=== PATIENT | male | born 1945 | race Asian ===

== ENCOUNTER → 2019-01-02 | Day surgery (SDC) | payer MEDICARE, OTHER ==
[2018-12-28 13:36] LABS: Urine WBC None Seen /hpf (0 - 3)
[2018-12-28 13:38] LABS: Basophils # (auto) 0 uL; Basophils % (auto) 0.5 % (0.0-2.0); Eosinophils # (auto) 0.2 uL; Eosinophils % (auto) 2.5 % (0.0-7.0); Hematocrit 42.4 % (41.0-53.0); Hemoglobin 14.4 g/dL (13.5-17.5); Lymphocytes # (auto) 1.4 uL; Lymphocytes % (auto) 17.9 % (10.0-50.0); Mean Corpuscular Hgb Conc. 33.8 g/dL (32.0-36.0); Mean Corpuscular Volume 94.6 fL (80.0-100.0); Monocytes # (auto) 0.9 uL; Monocytes % (auto) 10.8 % (0.0-12.0); Neutrophils # (auto) 5.5 uL; Neutrophils % (auto) 68.3 % (37.0-80.0); Platelet Count (auto) 266 10^3/uL (140-450); Red Blood Cells 4.49 10^6/uL (4.5-5.90); Red Cell Distribution Width 13.5 % (11.8-14.3)
[2018-12-28 13:54] LABS: INR 0.93 (0.9-1.15); Partial Thromboplastin Time 27.5 sec (23.78-33.04)
[2018-12-28 14:12] LABS: Calcium 8.8 mg/dL (8.5-10.1); Potassium 4.1 mmol/L (3.5-5.1)
[2018-12-28 14:15] LABS: BUN/Creatinine Ratio 12.1; Bilirubin, Total 0.6 mg/dL (0.2-1.0); Total Protein 7.8 g/dL (6.4-8.2)
[2018-12-28 15:14] LABS: Urine Bacteria NONE SEEN /hpf (None Seen); Urine Blood Negative /uL (Negative); Urine Specific Gravity 1.023 (1.001-1.035)
[~2019-01-02] VITALS: Ht 185.4 cm; Wt 94.8 kg
[~2019-01-02] MED LIST: BUPIVACAINE 0.75% INJ 10ML MPV SDV IJ ONE; CALC1TAB47 PO; CARV6.2551 PO; DRON400T PO; GLUCTAB8 OR; MIDAZOLAM HCL 1MG/1ML-2 ML VIAL ONE; MULTTAB61 PO; OMEG1360 PO; ONDANSETRON HCL 4 MG/2 ML VIAL IV ONE; RIV15T PO; SIMV-8 PO; SITA50TA28 PO; ceFAZolin 1GM/50ML 50 ML IV ONE; ePHEDrine SULFATE 50 MG/ML AMP IV PRN; fentaNYL CITRATE 100 MCG/2 ML VL IV ONE; fentaNYL CITRATE 100 MCG/2 ML VL ONE; hydrALAZINE HCL 20 MG/ML VL IV PRN
[2019-01-02 09:16] VITALS: BP 117/76
== END | disposition home or self-care (01) ==
LOC: SUR 06:24
PROVIDERS: ATTEND Podiatrist Foot & Ankle Surgery
DX: M20.21 Hallux rigidus, right foot (principal); M20.5X2 Other deformities of toe(s) (acquired), left foot; E11.9 Type 2 diabetes mellitus without complications; I48.91 Unspecified atrial fibrillation; H26.8 Other specified cataract; Z95.0 Presence of cardiac pacemaker; Z87.891 Personal history of nicotine dependence; Z98.890 Other specified postprocedural states
CPT/HCPCS: 28289; 36415; 80053; 81001; 82962; 85025; 85610; 85730; 88304; 88311; J0690; J2250; J3010; J3490

== ENCOUNTER → 2022-11-21 | Day surgery (SDC) | payer MEDICARE, OTHER ==
[~2022-11-21] VITALS: Ht 185.4 cm; Wt 96.2 kg
[~2022-11-21] MED LIST changes: +BUPIVACAINE 0.5% P/F INJ 10 ML VIAL ONE; -BUPIVACAINE 0.75% INJ 10ML MPV SDV IJ ONE; +DexAMETHasone SOD PHOS 10MG/1ML VIAL INJ ONE; +EPINEPHrine HCL 1 MG/1 ML AMP ONE; +GLYCOPYRROLATE 0.2 MG/ML 1ML VIAL ONE; +KETAMINE HCL 10 ML ONE; +KETOROLAC TROMETH 30 MG/ML 1ML VIAL ONE; +LIDOCAINE 2% (LOCAL ANESTH.) PF 5ml SDV ONE; +LIDOCAINE 2% JELLY 11ml (GLYDO) ONE; -MIDAZOLAM HCL 1MG/1ML-2 ML VIAL ONE; +MULT-1018 PO; -MULTTAB61 PO; -ONDANSETRON HCL 4 MG/2 ML VIAL IV ONE; +ONDANSETRON HCL 4 MG/2 ML VIAL ONE; +PROPOFOL 10 MG/ML 20 ML IV ONE; -RIV15T PO; +ceFAZolin 1GM/50ML 100 ML IV ONE; -ceFAZolin 1GM/50ML 50 ML IV ONE; -ePHEDrine SULFATE 50 MG/ML AMP IV PRN; +ePHEDrine SULFATE 50 MG/ML AMP ONE; -fentaNYL CITRATE 100 MCG/2 ML VL IV ONE; -hydrALAZINE HCL 20 MG/ML VL IV PRN
[2022-11-21 10:50] VITALS: BP 126/71
== END | disposition home or self-care (01) ==
LOC: SUR 07:56
PROVIDERS: ATTEND Orthopaedic Surgery
DX: S83.232A Complex tear of medial meniscus, current injury, left knee, initial encounter (principal); S83.282A Other tear of lateral meniscus, current injury, left knee, initial encounter; X58.XXXA Exposure to other specified factors, initial encounter; Y93.89 Activity, other specified; Y92.89 Other specified places as the place of occurrence of the external cause; M22.42 Chondromalacia patellae, left knee; I48.91 Unspecified atrial fibrillation; I10 Essential (primary) hypertension; G43.909 Migraine, unspecified, not intractable, without status migrainosus; Z79.899 Other long term (current) drug therapy
CPT/HCPCS: 29880; J0171; J0690; J1100; J1885; J2001; J2405; J2704; J3490; U0003

== ENCOUNTER 2025-09-22 07:28 | Inpatient (IN) | payer MEDICARE, OTHER ==
[~2025-09-22] VITALS: Ht 186.7 cm; Wt 105.5 kg
[2025-09-22] VITALS (15 sets, daily range): BP systolic 99–139; BP diastolic 35–127; PULSE 64–77; RESP 12–18; TEMP 97–98.6; O2SAT 94–100
[~2025-09-22 07:28] MED LIST changes: +ASPI1TAB20 PO; +ATOR10TA52 PO; -BUPIVACAINE 0.5% P/F INJ 10 ML VIAL ONE; -CALC1TAB47 PO; -DRON400T PO; -DexAMETHasone SOD PHOS 10MG/1ML VIAL INJ ONE; +EMPA1TAB PO; -EPINEPHrine HCL 1 MG/1 ML AMP ONE; -GLUCTAB8 OR; -GLYCOPYRROLATE 0.2 MG/ML 1ML VIAL ONE; -KETAMINE HCL 10 ML ONE; -KETOROLAC TROMETH 30 MG/ML 1ML VIAL ONE; -LIDOCAINE 2% (LOCAL ANESTH.) PF 5ml SDV ONE; -LIDOCAINE 2% JELLY 11ml (GLYDO) ONE; -MULT-1018 PO; -OMEG1360 PO; -ONDANSETRON HCL 4 MG/2 ML VIAL ONE; +PANT1INJ3 IV; +PANT40TA2 PO; -PROPOFOL 10 MG/ML 20 ML IV ONE; -SIMV-8 PO; -SITA50TA28 PO; -ceFAZolin 1GM/50ML 100 ML IV ONE; -ePHEDrine SULFATE 50 MG/ML AMP ONE; -fentaNYL CITRATE 100 MCG/2 ML VL ONE
[2025-09-22] MEDS ORDERED: fentaNYL CITRATE 100 MCG/2 ML VL ONE ×2 (10:46→11:36)
[2025-09-22] MEDS ORDERED: KETAMINE 50mg/ML 1ml syringe ONE ×2 (10:46→11:57)
[2025-09-22] MEDS ORDERED: MIDAZOLAM HCL 2MG/2ML 2ml VIAL (1mg/ml) ONE ×2 (10:47→11:36)
[2025-09-22] MEDS ORDERED: MORPHINE SULF PF 5 MG/10 ML VIAL ONE ×2 (10:47→11:37)
[2025-09-22] MEDS ORDERED: ONDANSETRON HCL 4 MG/2 ML VIAL ONE (10:49)
[2025-09-22] MEDS ORDERED: PROPOFOL 10 MG/ML 20 ML IV ONE (10:49)
[2025-09-22] MEDS ORDERED: GLYCOPYRROLATE 0.2 MG/ML 1ML VIAL ONE (10:49)
[2025-09-22] MEDS ORDERED: KETAMINE 50mg/ML 10ml Vial 10 ML ONE (11:27)
[2025-09-22] MEDS ORDERED: diphenhydrAMINE HCL 50 MG/1 ML VL ONE (11:37)
[2025-09-22] MEDS: BUPIVACAINE HCL 0.25% P/F 10 ML VIAL ONE (12:39)
[2025-09-22] MEDS: MORPHINE SULF PF 5 MG/10 ML VIAL ONE (12:39)
[2025-09-22] MEDS: KETOROLAC TROMETH 30 MG/ML 1ML VIAL ONE (12:39)
[2025-09-22] MEDS: VANCOMYCIN HCL 1000 MG VL ONE (12:42)
--- NOTE | 2025-09-22 13:08 | DVHOP2 ---
Discharge Orders Discharge Orders DISCHARGE WHEN CRITERIA MET DISCHARGE WHEN CRITERIA MET. Operative Rep- Outpatient Operative Report PRE-OP DIAGNOSIS: Left knee DJD PRE-OP PAIN LEVEL (0-10): 8 POST-OP DIAGNOSIS: same POST-OP PAIN LEVEL (0-10): unclear [place] protocol followed: Yes ESTIMATED BLOOD LOSS: 25 cc PROCEDURE: Left total knee arthroplasty Computer navigation left total knee arthroplasty Application of negative pressure wound VAC SURGEON/PATCH PRESS OPERATOR: Apollo CONTEH ANESTHESIA: General ANESTHESIOLOGIST: INFORMED CONSENT: Informed Consent: Discussed all inherent risks, complications, and alternatives treatments with the patient. Patient has agreed to proceed with the procedure. I have reviewed all pre-operative assessments including Labs, EKGs, and radiographic images that has been performed. Patient is an appropriate candidate for the outpatient surgical center procedure. The patient is a 80-year-old male who has ongoing pain in the left knee was consented for a unicompartmental total knee arthroplasty versus a total knee arthroplasty and we did educate the patient preoperatively the patient is a candidate for unicompartment knee arthroplasty however there was any concern about the lateral compartment then we will transition over to a total knee arthroplasty of the patient understood all the risks and benefits of surgical and nonsurgical treatment of the left lower extremity the patient understood the risks and benefits of surgical and nonsurgical treatment The patient opted for surgical treatment of the left lower extremity The patient was seen in the preoperative holding of the left lower extremity was marked the patient was brought to operative suite general anesthesia was then induced and also to hospital protocol the left lower extremity was prepped and draped in the standard fashion Ancef was given for infection prophylaxis TXA was given for bleeding prophylaxis once I was then done the left lower extremity was then prepped and draped in the standard fashion once it was then completed in the appropriate manner an incision was made through skin subcu tissue down to the VMO quad junction of the medial parapatellar arthrotomy was then created in the appropriate manner once I was then completed in the appropriate manner a medial release was then created once I was then created of the fat was then removed with a of the anterior compartment of the patellar tendon once I was then done the medial and lateral meniscectomy was then done on the anterior horn of the medial and lateral meniscus once it was then that the ACL was transected once I was then completed the of the computer navigation with a 2 degree slope based on the poly and based on the fact that I was cutting portions of the PCL and I did 2 degree slope to help with the flexion gap once it was then completed computer navigation was brought onto the field the proximal tibia cut was then completed with a 2 mm off the high medial side once I was then completed in the appropriate manner with 2 mm off the medial side of the proximal tibia cut was then completed in the appropriate manner once it was then completed in the appropriate manner with the proximal tibia cut being completed once it was then done in the distal femoral cut with the computer navigation with a 3 degree flexion kit hematocrit mechanical axis with a 3 of flexion and internal cut of the distal femoral cut was then completed with a size 7 femoral component was then noted to be appropriately sized the 4 in 1 cutting block was then used on the posterior osteophytes were carefully removed once I was then done the 9 mm spacer block was then balanced in flexion and extension however was tight medially therefore reduction tibial osteotomy was then completed along with a medial release along the posterior aspect of the proximal tibia to balance out of the knee once I was then done a size 6 tibial base plate was then punched and kicked along the medial 1/3 of the tibial tubercle 9 mm MC poly was then placed with a size 7 femoral component once I was then done all the trial components were carefully done patellar neurectomy was then completed once I was then completed a size 6 tibial base plate was then punched and killed followed then placed along with a size 9 MC poly followed by a size 7 for the femoral component was then placed into position once I was then done of the knee was irrigated copiously with saline and then Betadine followed by Ethibond followed by 0 Vicryl followed by 2-0 Monocryl followed by claude. The patient will be weight-bearing as tolerated in the left lower extremity PT OT out of bed daily follow up in 2 weeks' time. APOLLO ROBBINS MD Sep 22, 2025 13:08
[2025-09-22] MEDS ORDERED: NALOXONE HCL 0.4 MG/ML VIAL IV PRN (13:15)
[2025-09-22] MEDS ORDERED: ONDANSETRON HCL 4 MG/2 ML VIAL IV PRN (13:15)
[2025-09-22] MEDS ORDERED: HYDROmorphone HCL 2 MG/ML VL/or syr IV PRN (13:15)
[2025-09-22] MEDS ORDERED: MIDAZOLAM HCL 2MG/2ML 2ml VIAL (1mg/ml) IV PRN (13:15)
[2025-09-22] MEDS ORDERED: LIDOCAINE W/ EPINEPHRINE 2% INJ 20ML VIAL ONE (14:09)
[2025-09-22] MEDS: PREGABALIN CAPSULE 75 MG CAP PO ONE (14:15)
[2025-09-22] MEDS ORDERED: MORPHINE SULFATE INJ 2 MG/ml SYRG IV PRN (14:15)
[2025-09-22] MEDS ORDERED: NITROGLYCERIN 0.4 MG SL TAB SL PRN (14:15)
[2025-09-22] MEDS: CELECOXIB 100 MG CAP PO ONE (14:15)
[2025-09-22] MEDS: ACETAMINOPHEN IV 1000 MG/100ML (10MG/ML) IV ONE (14:17)
[2025-09-22] MEDS: TRANEXAMIC ACID 20 ML ONE (16:20)
[2025-09-22] MEDS: BUPIVACAINE 0.5% P/F INJ 10 ML VIAL ONE (16:21)
[2025-09-22] MEDS: CEFEPIME 1GM/50ML 50 ML IV ONE (16:21)
--- NOTE | 2025-09-22 18:43 | DVHINCON2 ---
Date Seen: Sep 22, [address] ROBBINS Family History: FH: cancer G8 FATHER Allergies: Coded Allergies: NO KNOWN ALLERGIES (Unverified , 12/28/18) Home Meds Reported Medications Aspirin (Aspir-81) 81 Mg Tab, 81 MG PO, TAB 09/19/25 Empagliflozin (Jardiance) 10 Mg Tab, PO, TAB 09/19/25 Pantoprazole Sodium Sesquihydr (Protonix) 40 Mg Tab, PO DAILY, #30 TAB 09/19/25 Pantoprazole Sodium (PANTOPRAZOLE SODIUM) 40 Mg Inj, 40 MG IV, INJ 09/19/25 Atorvastatin Calcium (ATORVASTATIN CALCIUM) 10 Mg Tab, PO DAILY, TAB 09/19/25 Carvedilol (Carvedilol) 6.25 Mg Tab, 6.25 MG PO Q12HR for 30 Days, MG 12/28/18 Current Medications Current Medications Medications (Trade) Dose Ordered Sig/Asya Route PRN Reason Start Time Stop Time Status Last Admin Ondansetron HCl (Zofran) 4 mg Q4HP PRN IV NAUSEA / VOMITING 09/22/25 13:15 09/22/25 18:00 DC Naloxone HCl (Narcan) 0.2 mg Q5M PRN IV For respirations < than 10/min 09/22/25 13:15 09/22/25 13:52 DC Hydromorphone HCl (Dilaudid Injection) 0.5 mg Q15M PRN IV SEVERE PAIN (7-10 PAIN SCALE) 09/22/25 13:15 09/22/25 13:52 DC Dexamethasone Sodium Phosphate (Decadron Injection) 10 mg RETREAD TECHNICIAN PRN IV FOR ITCHING 09/22/25 13:15 09/22/25 13:52 DC Midazolam HCl (Versed Injection) 1 mg Q10M PRN IV ANXIETY 09/22/25 13:15 09/22/25 13:56 DC Ephedrine Sulfate (ePHEDrine SULFATE) 10 mg Q10M PRN IV SBP LESS THAN 90 09/22/25 13:15 09/22/25 13:56 DC Sodium Chloride (Saline Lock Ns) 10 ml Q8HR IV 09/22/25 22:00 Acetaminophen/ Hydrocodone Bitart ([place] 5/325MG Tab) 1 tab Q4HP PRN PO MODERATE PAIN (4-6 PAIN SCALE) 09/22/25 14:15 Morphine Sulfate 2 mg Q4HP PRN IV BREAKTHROUGH PAIN 09/22/25 14:15 Enoxaparin Sodium (Lovenox) 40 mg DAILY SC 09/23/25 10:00 Nitroglycerin (Ntrostat Sublingual) 0.4 mg Q5MINP PRN SL FOR CHEST PAIN 09/22/25 14:15 Morphine Sulfate 2 mg Q30M PRN IV FOR CHEST PAIN 09/22/25 14:15 Vital Signs Vital Signs Date Time Temp Pulse Resp B/P (MAP) Pulse Ox O2 Delivery O2 Flow Rate FiO2 09/22/25 17:45 66 16 96 09/22/25 17:00 98.5 139/83 (101) 98.5 09/22/25 15:49 Room Air* 0 21 Labs/Diagnostic Data Labs Test 09/22/25 16:46 09/22/25 11:33 Range/Units Creatinine 1.01 0.700-1.30 mg/dL Glomerular Filtration Rate Calc 76 >90 mL/min POC Glucose 87 70-106 mg/dl Assessment SEE DICTATED NOTE Plan discussed with: Patient Date of Service: Sep 22, 2025 Billing Provider: PEPE CADET MD Common Visit Codes: [id number] INP/OBS CARE (HIGH) Secondary Visit Codes: [id number] CARE PLAN 30 MINUTES PEPE CADET MD Sep 22, 2025 18:43
--- NOTE | 2025-09-22 18:57 | DVHINCON2 ---
INTERNAL MEDICINE CONSULT HISTORY OF PRESENT ILLNESS: The patient is a 80-year-old gentleman who has been seen after he underwent surgery on the left knee for DJD of the knee. The patient denies any significant pain. No chest pain. No shortness of breath. No nausea or vomiting. REVIEW OF SYSTEMS: Review of rest of the systems otherwise currently negative. PAST MEDICAL HISTORY: Significant for atrial fibrillation, status post ablation, status post WATCHMAN procedure. Also has history of hyperlipidemia and GERD. MEDICATIONS: He takes Lipitor, aspirin, Protonix, Coreg, and Jardiance. ALLERGIES: No known drug allergies. SOCIAL HISTORY: Occasional alcohol. Denies smoking. Lives alone. FAMILY HISTORY: Negative. PHYSICAL EXAMINATION: GENERAL: The patient is awake, alert. VITAL SIGNS: Temperature of 98.5, pulse 65 per minute, blood pressure 139/83. SHEENT: Unremarkable. NECK: There is no JVD. No pedal edema. LUNGS: Equal bilaterally. No added sounds. CARDIOVASCULAR SYSTEM: S1 and S2 is regular. No murmurs. ABDOMEN: Soft. There is no organomegaly. NEUROLOGIC: Nonfocal. MUSCULOSKELETAL: The left knee is currently in the dressing. ASSESSMENT AND PLAN: * Atrial fibrillation, status post ablation, status post WATCHMAN procedure. * Hyperlipidemia. * Gastroesophageal reflux disease. * Status post left knee surgery for degenerative joint disease of the knee for which he will be placed on pain medication and receive physical therapy. * Advanced care planning. The patient is a full code-Time spent was 18 minutes. MD SAMANTHA Raman/TERESA TID: [id number] RECEIPT: [id number] [facility]
[2025-09-22] MEDS: CARVEDILOL 3.125 MG TAB PO SCH (21:34)
[2025-09-22] MEDS: SODIUM CHLOR 0.9% PF (SALINE LOCK) 10ML VIAL/SYR IV SCH (21:35)
[2025-09-23] VITALS (23 sets, daily range): BP systolic 98–124; BP diastolic 58–75; PULSE 62–76; RESP 16–18; TEMP 97.1–98.9; O2SAT 94–99
[2025-09-23 01:38] LABS: Urine Protein, UAD Negative (Negative)
[2025-09-23] MEDS: PANTOPRAZOLE 40 MG TAB PO SCH (05:11)
[2025-09-23 06:16] LABS: Hematocrit 41.2 % (41.0-53.0); Hemoglobin 14.1 g/dL (13.5-17.5); Mean Corpuscular Hemoglobin 31.0 pg (28.0-32.0); Mean Corpuscular Volume 90.6 fL (80.0-100.0); Nucleated Red Blood Cells % 0.0 %
[2025-09-23 06:45] LABS: Albumin 4.1 g/dL (3.2-4.8); Alkaline Phosphatase 70 U/L (46-116); Anion Gap 10 (5-15); BUN/Creatinine Ratio 14.1 (10.0-20.0); Bilirubin, Total 0.8 mg/dL (0.2-1.0); Blood Urea Nitrogen 14 mg/dL (9-23); Calcium 9.3 mg/dL (8.7-10.4); Carbon Dioxide 24 mmol/L (20-31); Chloride 103 mmol/L (98-107); Potassium 4.9 mmol/L (3.5-5.1); Sodium 137 mmol/L (136-145); Total Protein 6.5 g/dL (5.7-8.2)
[2025-09-23 06:51] LABS: Alanine Aminotransferase 58 U/L (7-40); Glucose 193 mg/dL (74-106)
--- NOTE | 2025-09-23 07:52 | DVHPN2 ---
Progress Note Date Seen: Sep 23, 2025 Medical Necessity Reason Pt with a Central, PICC or Fol: Yes The following are medically ne: Villasenor Catheter Subjective Patient reports: No new complaints Objective vital signs Vital Sign Date Time Temp Pulse Resp B/P (MAP) Pulse Ox O2 Delivery O2 Flow Rate FiO2 09/23/25 06:57 65 16 97 09/23/25 05:00 97.1 124/65 (84) 97.1 09/22/25 20:00 Room Air* 0 21 Total Intake and Output 09/22/25 09/22/25 09/23/25 15:00 23:00 07:00 Intake Total 100 ml 0 ml 1300 ml Output Total 1400 ml Balance 100 ml 0 ml -100 ml medications Current Medications Medications Dose Ordered Sig/Asya Route Start Time Stop Time Status Last Admin Dose Admin Sodium Chloride 10 ml Q8HR IV 09/22/25 22:00 09/23/25 05:11 10 ML Acetaminophen/ Hydrocodone Bitart 1 tab Q4HP PRN PO 09/22/25 14:15 Morphine Sulfate 2 mg Q4HP PRN IV 09/22/25 14:15 Enoxaparin Sodium 40 mg DAILY SC 09/23/25 10:00 Nitroglycerin 0.4 mg Q5MINP PRN SL 09/22/25 14:15 Morphine Sulfate 2 mg Q30M PRN IV 09/22/25 14:15 Carvedilol 3.125 mg Q12HR PO 09/22/25 22:00 09/22/25 21:34 3.125 MG Pantoprazole Sodium 40 mg DAILY@0600 PO 09/23/25 06:00 09/23/25 05:11 40 MG Examination: GENERAL:Normal, MSK:Abnormal laboratory and microbiology Laboratory Tests 09/23/25 05:29 Test 09/23/25 05:29 Range/Units Serum Glucose 193 H 74-106 mg/dL Problem List/Assessment/Plan Problem List/Assessment/Plan 80 year old male who is s/p left total knee arthroplasty POD 1 1. pain control 2. WBAT 3. CPM as ordered 4. Home health arrangements made by Dr. Tello prior to surgery 5. prescriptions for percocet, aspirin, keflex and colace sent on 09/16/2025 to [facility] pharmacy 6. Patient to follow up as scheduled on 10/08/2025 at 10:15 7. d/c villasenor cath 8. patient to ambulate with PT prior to going home 9. clear for discharge from orthopedic standpoint so long as patient can urinate independently and ambulate with walker with the following discharge recommendations: Total Knee Arthroplasty Discharge Instructions Wound Care 1. You will likely have a gel-type dressing over your wound, you may keep this on for 7-14 days after leaving the hospital until your first post-op visit, unless it becomes soiled or your skin becomes irritated. If a wound vac dressing is placed on your knee this is to be left in place for one week and will be changed as needed. After your remove the dressing or wound vac, the home health nurse may place clean dry dressing over your wound. Keep wound covered, clean and dry for two weeks. 2. Greg will be removed during your initial post-op visit. If you have concerns about our wound, please call the office immediately. If nervous about staple removal can take pain pill one hour prior to appointment. 3. If there is drainage from your wound, change the dressing daily until it stops. If drainage lasts more than 10 days, call our office. 4. Low grade (up to 100 degrees) fever is common for the first week after surgery. You should take your temperature daily. If you have fevers of 101 or more, please call the office. Medication Management 1. You will be discharged with pain medication, a blood thinner (unless you were previously on a blood thinner prior to surgery) and stool softener. Please follow the instructions regarding these medications as provided by your nurse at the hospital upon discharge. 2. Blood clots in the leg are a known complication of surgery. It is very important that you take the medication to protect against clots. Depending on what you are discharged on typically it is Lovenox 40mg daily for 2 weeks or Aspirin 81mg twice daily for 4 weeks. After you finish this, you should then take baby Aspirin (81mg) once daily for 2 weeks. 3. You should restart all of your prescription medications once discharged from the hospital/surgery center unless specifically instructed otherwise. 4. Herbal supplements may be restarted 2 weeks after surgery. 5. If you have been given Coumadin as a blood thinner, please follow up with your spot sprayer during the first two weeks after surgery to review medications and overall medical well-being. 6. Please note that narcotic pain medication may cause constipation. Please remember to take stool softeners (Colace) when using narcotics to help reduce the change of constipation. You should not use alcohol together with narcotic medication. Activity 1. CPM as ordered, goal is for 6 hours every day for the first 21 days of your recovery. Can break it up in to increments of 2-3 hours at a time. Most hospitals will start at 45 degrees of flexion, and increase by 5 degrees daily until the machine has been maxed out. The goal is to be at 90 degrees by first postop visit in 2 weeks. 2. No pool, jacuzzi, beach, og or bath for 6 weeks. Once all scabbing has fallen off patient can begin soaking and submerging knee under water for 15- minute periods at a time. 3. Physical therapy is critical in the first 2 weeks. If having issues with scheduling please inform office. 4. No running or jumping for 6 weeks. 5. Can walk and bear as much weight on the surgical leg as tolerated. No restrictions in regards to walking or standing. [facility] [place] 1. Driving is not permitted within the first 2 weeks. 2. Your first postoperative visit will take place 2 weeks after discharge. Please call the office once you are home from the hospital to arrange this appointment. 3. Antibiotic preventative treatment is required before dental or other invasive procedures. Please ask your surgeon about this at your first postoperative visit. If you experience chest pain, shortness of breath or severe painful calf swelling, go to the nearest emergency room to be evaluated. Please call our office once your situation is stabilized. Plan discussed with: Patient My Orders My Orders Orders - BISI MYRICK NP Procedure Category Date Status Time Patient Condition ORDERS 09/22/25 Transmitted 14:06 Regular Diet DIET 09/22/25 Transmitted Lunch Sodium Chloride Lock PHA 09/22/25 In Process (Saline Lock Ns) 22:00 Hydrocodone-Acet PHA 09/22/25 In Process 5/325mg Tab ([place] 14:15 Pt Request For Service PT 09/23/25 Logged 08:00 CPM PT 09/22/25 Transmitted 14:06 Hemoglobin & LAB 09/24/25 Verified Hematocrit 05:00 Hemoglobin & LAB 09/25/25 Verified Hematocrit 05:00 Call/Page GENNA 09/22/25 In Process Hospitalist/Atten Fo 14:06 Incentive Spirometry ORDERS 09/22/25 Transmitted 14:06 Morphine Sulfate PHA 09/22/25 In Process Injection 14:15 Enoxaparin Sodium PHA 09/23/25 In Process (Lovenox) 10:00 Nitroglycerin PHA 09/22/25 In Process Sublingual (Ntrostat 14:15 Morphine Sulfate PHA 09/22/25 In Process Injection 14:15 Stat Ekg For Chest GENNA 09/22/25 In Process Pain 14:06 Notify Of Changes [facility] 09/22/25 In Process From Base 14:06 Salad Maker For [facility] 09/22/25 In Process 24 Hours 14:06 Emergency Dysrhythmia [facility] 09/22/25 In Process Protocol 14:06 Rhythm Strips Once [facility] 09/22/25 In Process Every Shift 14:06 Oxygen By Nasal RT 09/22/25 Transmitted Cannula 14:06 * Hospitalist Consult CONS 09/22/25 Transmitted Date of Service: Sep 23, 2025 Billing Provider: NANCY TELLO MD Common Visit Codes: NOT BILLABLE BISI MYRICK NP Sep 23, 2025 07:52
[2025-09-23] MEDS: ENOXAPARIN SOD 40 MG/0.4 ML SYRINGE SC SCH (09:26)
[2025-09-23] MEDS: HYDROcodone-ACET 5/325MG TAB PO PRN (09:28)
--- NOTE | 2025-09-23 10:37 | DVHDS2 ---
Discharge Summary Date of Admission Sep 22, 2025 at 14:06 Date of Discharge: Sep 23, 2025 Labs/Diagnostic Data: Laboratory Results Test 09/23/25 05:29 09/23/25 01:11 09/22/25 11:33 White Blood Count 16.6 10^3/uL (4.4-10.8) Red Blood Count 4.55 10^6/uL (4.5-5.90) Hemoglobin 14.1 g/dL (13.5-17.5) Hematocrit 41.2 % (41.0-53.0) Mean Corpuscular Volume 90.6 fL (80.0-100.0) Mean Corpuscular Hemoglobin 31.0 pg (28.0-32.0) Mean Corpuscular Hemoglobin Concent 34.2 g/dL (32.0-36.0) Red Cell Distribution Width 14.0 % (11.8-14.3) Platelet Count 254 10^3/uL (140-450) Mean Platelet Volume 8.3 fL (6.9-10.8) Neutrophils (%) (Auto) 91.5 % (37.0-80.0) Lymphocytes (%) (Auto) 4.2 % (10.0-50.0) Monocytes (%) (Auto) 4.3 % (0.0-12.0) Eosinophils (%) (Auto) 0.0 % (0.0-7.0) Basophils (%) (Auto) 0.0 % (0.0-2.0) Neutrophils # (Auto) 15.2 10 ^3/uL (1.6-8.6) Lymphocytes # (Auto) 0.7 10 ^3/uL (0.4-5.4) Monocytes # (Auto) 0.7 10 ^3/uL (0-1.3) Eosinophils # (Auto) 0 10 ^3/uL (0-0.8) Basophils # (Auto) 0 10 ^3/uL (0-0.2) Nucleated Red Blood Cells 0.0 % Sodium Level 137 mmol/L (136-145) Potassium Level 4.9 mmol/L (3.5-5.1) Chloride Level 103 mmol/L (98-107) Carbon Dioxide Level 24 mmol/L (20-31) Anion Gap 10 (5-15) Blood Urea Nitrogen 14 mg/dL (9-23) Creatinine 0.99 mg/dL (0.700-1.30) Glomerular Filtration Rate Calc 77 mL/min (>90) BUN/Creatinine Ratio 14.1 (10.0-20.0) Serum Glucose 193 mg/dL (74-106) Calcium Level 9.3 mg/dL (8.7-10.4) Total Bilirubin 0.8 mg/dL (0.2-1.0) Aspartate Amino Transferase (AST) 35 U/L (13-40) Alanine Aminotransferase (ALT) 58 U/L (7-40) Alkaline Phosphatase 70 U/L (46-116) Total Protein 6.5 g/dL (5.7-8.2) Albumin 4.1 g/dL (3.2-4.8) Urine Color Light-yellow (Yellow) Urine Clarity Clear (Clear) Urine pH 5.0 (5.0-9.0) Urine Specific [place] 1.030 (1.001-1.035) Urine Protein Negative (Negative) Urine Ketones Trace (Negative) Urine Blood Negative /uL (Negative) Urine Nitrite Negative (Negative) Urine Bilirubin Negative (Negative) Urine Urobilinogen Normal mg/dL (Negative) Urine Leukocyte Esterase Negative /uL (Negative) Urine RBC 2 /hpf (0 - 3) Urine Microscopic WBC 1 /HPF (0-3) Urine Squamous Epithelial Cells None seen /hpf (<5) Urine Bacteria None seen /hpf (None Seen) Urine Hyaline Casts Few /lpf (0 - 2) Urine Glucose 4+ mg/dL (Normal) POC Glucose 87 mg/dl (70-106) Other Laboratory Tests 09/23/25 05:29 Brief Hx & Hospital Course: SEE DICTATED NOTE Condition at Discharge: Fair Final Diagnosis/Problems List KNEE SURGERY Discharge Disposition: Home Discharge Instruct/Medications Diet: Cardiac 2g Na,low cholest Activity: No Restrictions, As Tolerated Follow Up/Referral: FU WIHT PCP/ORTHO Medications: RESUME HOME MEDS REST MEDS PER ORTHO Scheduled Atorvastatin Calcium (Atorvastatin Calcium), Unknown Dose PO DAILY, (Reported) Carvedilol (Carvedilol), 6.25 MG PO Q12HR, (Reported) Pantoprazole Sodium Sesquihydr (Protonix), Unknown Dose PO DAILY, (Reported) Miscellaneous Medications Aspirin (Aspir-81), 81 MG PO, (Reported) Empagliflozin (Jardiance), Unknown Dose PO, (Reported) Pantoprazole Sodium (Pantoprazole Sodium), 40 MG IV, (Reported) Discharge Statement: "Patient was advised to return to the ER or call 911 if any headaches, dizziness, shortness of breath, chest pain, abdominal pain, bleeding, fevers, or worsening of medical condition. Patient was counseled about treatment plan, medications, possible side effects, patientverbalized understanding. All questions were answered to the best of my ability. This discharge took greater then 30 minutes in planning, reviewing documentation, counseling the patient, and discussing with other team members." ASSESSMENT ASSESSMENT Assessment KNEE SURGERY Date of Service: Sep 23, 2025 Billing Provider: PEPE CADET MD Common Visit Codes: [id number] DISCH DAY >30min PEPE CADET MD Sep 23, 2025 10:37
--- NOTE | 2025-09-23 10:52 | DVHDS ---
HISTORY OF PRESENT ILLNESS: The patient is a 80-year-old gentleman who was admitted after he underwent surgery on the left knee for DJD of the knee. He has history of atrial fibrillation status post ablation and Watchman procedure along with hyperlipidemia and GERD. HOSPITAL COURSE: The patient postoperatively developed urinary retention requiring placement of a Cal[place] catheter. The patient has ambulated with Physical Therapy. He will be discharged once Calvo catheter is removed and he has voided. The patient will resume his home medications at discharge and will be on medications as per Orthopedics. He will have physical therapy and a CPM machine. He will follow up with his Primary and Orthopedics. FINAL DIAGNOSES: * Atrial fibrillation, status post ablation, status post Watchman procedure. * Hyperlipidemia. * GERD. * Status post left knee surgery for DJD of the knee. Time spent in discharge planning and review of plan with the patient and nursing was 38 minutes. MD SAMANTHA Raman/RICA TID: [id number] RECEIPT: [id number]
--- NOTE | 2025-09-23 13:15 | DVH ---
CLINICAL HISTORY: URINARY RETENTION TECHNIQUE: Complete ultrasound exam of the kidneys and bladder was performed. COMPARISON: None FINDINGS: The right kidney has normal echogenicity and measures 10.4 cm. There is no focal parenchymal abnormality or evidence for stone. There is no hydronephrosis. The left kidney has normal echogenicity and measures 10.6 cm. There is no focal parenchymal abnormality or evidence for stone. There is no hydronephrosis. The bladder is contracted with with a volume of 37 mL. The left ureteral jet not seen. IMPRESSION: No significant sonographic abnormality of the kidneys. Left ureteral jet not seen.
--- NOTE | 2025-09-23 17:29 | DVHINCON2 ---
Date of service: Sep 23, 2025 History of Present Illness HPI Patient is a 80-year-old gentleman who presented for elective left total knee replacement. It was performed by Orthopedics. He is known to our practice from outside and before. Does have history of atrial fibrillation and is status post ablation. He also has had Watchman device before. Home Meds Reported Medications Aspirin (Aspir-81) 81 Mg Tab, 81 MG PO, TAB 09/19/25 Empagliflozin (Jardiance) 10 Mg Tab, PO, TAB 09/19/25 Pantoprazole Sodium Sesquihydr (Protonix) 40 Mg Tab, PO DAILY, #30 TAB 09/19/25 Pantoprazole Sodium (PANTOPRAZOLE SODIUM) 40 Mg Inj, 40 MG IV, INJ 09/19/25 Atorvastatin Calcium (ATORVASTATIN CALCIUM) 10 Mg Tab, PO DAILY, TAB 09/19/25 Carvedilol (Carvedilol) 6.25 Mg Tab, 6.25 MG PO Q12HR for 30 Days, MG 12/28/18 Past Medical History Others Past medical history includes left knee DJD, atrial fibrillation (status post ablation), status post Watchman device implantation, hypertension, hyperlipidemia, GERD, status post pacemaker (Biotronik) implantation, history of kidney stone, migraine, diverticulosis, radiculopathy and history of thoracic aortic aneurysm. He is ex-smoker. Patient Family History: FH: cancer G8 FATHER Smoker: Quit Alocohol: None Drugs: None Review of Systems Constitutional: No symptom reported Ears, Nose, & Throat: No symptom reported Eyes: No symptom reported Cardiovascular: No symptom reported Gastrointestinal: No symptom reported All Other Systems 14 point review of system was performed. Relevant findings as per above and as per HPI. Otherwise negative. H&P Exam Vital Signs Vital Signs Date Time Temp Pulse Resp B/P (MAP) Pulse Ox O2 Delivery O2 Flow Rate FiO2 09/23/25 16:53 98.7 62 18 113/62 (79) 98 98.7 09/23/25 08:00 Room Air* 0 21 General Appeara: Well developed Head Exam: Normal inspection Eye Exam: bilateral eye PERRL Pulmonary/Respiratory: Normal inspection, Normal breath sounds, Lungs clear Cardiovascular/Chest: Regular rate, Systolic murmur Peripheral Pulses: 2+ carotid (R), 2+ carotid (L), 2+ femoral (R), 2+ femoral (L) Abdominal Exam: Normal bowel sounds, Soft, No hepatospenomegaly Neuro/Mental St: Alert, Oriented Appearance: Appropriate appearance Eye contact/ Speech: Cooperative Labs/Xrays Labs Test 09/23/25 05:29 09/23/25 01:11 09/22/25 11:33 Range/Units White Blood Count 16.6 H 4.4-10.8 10^3/uL Red Blood Count 4.55 4.5-5.90 10^6/uL Hemoglobin 14.1 13.5-17.5 g/dL Hematocrit 41.2 41.0-53.0 % Mean Corpuscular Volume 90.6 80.0-100.0 fL Mean Corpuscular Hemoglobin 31.0 28.0-32.0 pg Mean Corpuscular Hemoglobin Concent 34.2 32.0-36.0 g/dL Red Cell Distribution Width 14.0 11.8-14.3 % Platelet Count 254 140-450 10^3/uL Mean Platelet Volume 8.3 6.9-10.8 fL Neutrophils (%) (Auto) 91.5 H 37.0-80.0 % Lymphocytes (%) (Auto) 4.2 L 10.0-50.0 % Monocytes (%) (Auto) 4.3 0.0-12.0 % Eosinophils (%) (Auto) 0.0 0.0-7.0 % Basophils (%) (Auto) 0.0 0.0-2.0 % Neutrophils # (Auto) 15.2 H 1.6-8.6 10 ^3/uL Lymphocytes # (Auto) 0.7 0.4-5.4 10 ^3/uL Monocytes # (Auto) 0.7 0-1.3 10 ^3/uL Eosinophils # (Auto) 0 0-0.8 10 ^3/uL Basophils # (Auto) 0 0-0.2 10 ^3/uL Nucleated Red Blood Cells 0.0 % Sodium Level 137 136-145 mmol/L Potassium Level 4.9 3.5-5.1 mmol/L Chloride Level 103 98-107 mmol/L Carbon Dioxide Level 24 20-31 mmol/L Anion Gap 10 5-15 Blood Urea Nitrogen 14 9-23 mg/dL Creatinine 0.99 0.700-1.30 mg/dL Glomerular Filtration Rate Calc 77 >90 mL/min BUN/Creatinine Ratio 14.1 10.0-20.0 Serum Glucose 193 H 74-106 mg/dL Calcium Level 9.3 8.7-10.4 mg/dL Total Bilirubin 0.8 0.2-1.0 mg/dL Aspartate Amino Transferase (AST) 35 13-40 U/L Alanine Aminotransferase (ALT) 58 H 7-40 U/L Alkaline Phosphatase 70 46-116 U/L Total Protein 6.5 5.7-8.2 g/dL Albumin 4.1 3.2-4.8 g/dL Urine Color Light-yellow Yellow Urine Clarity Clear Clear Urine pH 5.0 5.0-9.0 Urine Specific Reading 1.030 1.001-1.035 Urine Protein Negative Negative Urine Ketones Trace Negative Urine Blood Negative Negative /uL Urine Nitrite Negative Negative Urine Bilirubin Negative Negative Urine Urobilinogen Normal Negative mg/dL Urine Leukocyte Esterase Negative Negative /uL Urine RBC 2 0 - 3 /hpf Urine Microscopic WBC 1 0-3 /HPF Urine Squamous Epithelial Cells None seen <5 /hpf Urine Bacteria None seen None Seen /hpf Urine Hyaline Casts Few 0 - 2 /lpf Urine Glucose 4+ H Normal mg/dL POC Glucose 87 70-106 mg/dl Assessment/Plan Plan Patient is a 80-year-old gentleman who presented for elective left total knee replacement. It was performed by Orthopedics. He is known to our practice from outside and before. Does have history of atrial fibrillation and is status post ablation. He also has had Watchman device before. Not in acute distress. No JVD. Mucosa is pink and wet. No carotid bruit. Not using accessory muscles of breathing. Lungs are clear to auscultation. Cardiac: Regular, no thrill/gallop. Abdomen is soft. Bowel sound is positive. There is no gross mass/hepatomegaly. Extremities reveal 1+ bilateral DM. Dorsalis pedis is 2+ bilateral. Past medical history includes left knee DJD, atrial fibrillation (status post ablation), status post Watchman device implantation, hypertension, hyperlipidemia, GERD, status post pacemaker (Biotronik) implantation, history of kidney stone, migraine, diverticulosis, radiculopathy and history of thoracic aortic aneurysm. He is ex-smoker. Echocardiogram (performed in the office) of December 30, 2024 revealed ejection fraction of 60-65%, mild concentric left ventricular hypertrophy, mild left atrial enlargement, mild MR/TR/PI/AI and right ventricular systolic pressure of less than 35 mm Hg. Nuclear stress test of June 2024 did not reveal any ischemia/scar and reported ejection fraction of 61%. WBC: 16.6 Hemoglobin: 14.1 Creatinine: 1.01 - 0.99 Potassium: 4.9 Renal ultrasound revealed: IMPRESSION: No significant sonographic abnormality of the kidneys. Left ureteral jet not seen. Patient is a 80-year-old gentleman who came for elective left knee replacement. It was performed by Orthopedics. Does have baseline history of atrial fibrill ation and has had AFib ablation before. Does have Watchman device. Status post left knee replacement Atrial fibrillation, status post ablation Status post Watchman device Hypertension Hyperlipidemia Status post pacemaker (Biotronik) implantation Radiculopathy Diverticulosis Thoracic artery aneurysm History of kidney stone Cardiac suggestion for management: Managed on telemetry Follow-up electrolytes and kidney function tests and correct abnormalities Cardiac-beasley is stable and can be followed as outpatient DVT prophylaxis is advised as per primary team Further evaluation and management depends on the above and clinical course Thank you for consultation A total of 55 minutes was spent reviewing the patient record, examining the patient, making a diagnostic and therapeutic plan, discussing this plan with medical personnel, following up on diagnostic studies and following the patient for clinical stability excluding any and all procedures. At least 50% of this time was spent in direct, [id number] contact. Thank you for allowing me to participate in this patient's care. Further recommendations will depend on patient's clinical course. Please do not hesitate to contact me if you have any questions or concerns. This medical document was created using electronic medical record system with [employer] computerized dictation system. Although this document has been carefully reviewed, there may still be some phonetic and typographical errors. These areas are purely typographical due to the imperfection of the software programs, and do not reflect any compromise in the patient's medical care. Plan discussed with: Patient, Other (nurse) BRANDY MILES MD Sep 23, 2025 17:29
[2025-09-24 01:00] VITALS: BP 117/69; PULSE 56; RESP 18; TEMP 98.1; O2SAT 97
[2025-09-24 05:00] VITALS: BP 119/63; PULSE 59; RESP 18; TEMP 98.4; O2SAT 97
[2025-09-24 05:35] LABS: Hematocrit 38.1 % (41.0-53.0); Hemoglobin 13.2 g/dL (13.5-17.5)
--- NOTE | 2025-09-24 06:32 | DVHPN2 ---
Progress Note - Dictate Date Seen: Sep 24, 2025 Medical Necessity Reason Pt with a Central, PICC or Fol: Yes The following are medically ne: Calvo Catheter vital signs Vital Sign Date Time Temp Pulse Resp B/P (MAP) Pulse Ox O2 Delivery O2 Flow Rate FiO2 09/24/25 05:00 98.4 59 18 119/63 (81) 97 98.4 09/23/25 20:00 Room Air* 0 21 Total Intake and Output 09/23/25 09/23/25 09/24/25 15:00 23:00 07:00 Intake Total 900 ml 220 ml Output Total 850 ml 230 ml Balance 50 ml -10 ml medications Current Medications Medications Dose Ordered Sig/Asya Route Start Time Stop Time Status Last Admin Dose Admin Sodium Chloride 10 ml Q8HR IV 09/22/25 22:00 09/24/25 06:06 10 ML Acetaminophen/ Hydrocodone Bitart 1 tab Q4HP PRN PO 09/22/25 14:15 09/23/25 21:14 1 TAB Morphine Sulfate 2 mg Q4HP PRN IV 09/22/25 14:15 Enoxaparin Sodium 40 mg DAILY SC 09/23/25 10:00 09/23/25 09:26 40 MG Nitroglycerin 0.4 mg Q5MINP PRN SL 09/22/25 14:15 Morphine Sulfate 2 mg Q30M PRN IV 09/22/25 14:15 Carvedilol 3.125 mg Q12HR PO 09/22/25 22:00 09/23/25 09:28 3.125 MG Pantoprazole Sodium 40 mg DAILY@0600 PO 09/23/25 06:00 09/24/25 06:06 40 MG laboratory and microbiology Laboratory Tests 09/24/25 04:49 09/23/25 05:29 Test 09/23/25 05:29 Range/Units Serum Glucose 193 H 74-106 mg/dL Assessment/Plan Patient is a 80-year-old gentleman who presented for elective left total knee replacement. It was performed by Orthopedics. He is known to our practice from outside and before. Does have history of atrial fibrillation and is status post ablation. He also has had Watchman device before. Not in acute distress. No JVD. Mucosa is pink and wet. No carotid bruit. Not using accessory muscles of breathing. Lungs are clear to auscultation. Cardiac: Regular, no thrill/gallop. Abdomen is soft. Bowel sound is positive. There is no gross mass/hepatomegaly. Extremities reveal 1+ bilateral DM. Dorsalis pedis is 2+ bilateral. Past medical history includes left knee DJD, atrial fibrillation (status post ablation), status post Watchman device implantation, hypertension, hyperlipidemia, GERD, status post pacemaker (Biotronik) implantation, history of kidney stone, migraine, diverticulosis, radiculopathy and history of thoracic aortic aneurysm. He is ex-smoker. Echocardiogram (performed in the office) of December 30, 2024 revealed ejection fraction of 60-65%, mild concentric left ventricular hypertrophy, mild left atrial enlargement, mild MR/TR/PI/AI and right ventricular systolic pressure of less than 35 mm Hg. Nuclear stress test of June 2024 did not reveal any ischemia/scar and reported ejection fraction of 61%. WBC: 16.6 Hemoglobin: 14.1 - 13.2 Creatinine: 1.01 - 0.99 Potassium: 4.9 Renal ultrasound revealed: IMPRESSION: No significant sonographic abnormality of the kidneys. Left ureteral jet not seen. Patient is a 80-year-old gentleman who came for elective left knee replacement. It was performed by Orthopedics. Does have baseline history of atrial fibrillation and has had AFib ablation before. Does have Watchman device. Status post left knee replacement Atrial fibrillation, status post ablation Status post Watchman device Hypertension Hyperlipidemia Status post pacemaker (Biotronik) implantation Radiculopathy Diverticulosis Thoracic artery aneurysm History of kidney stone Cardiac suggestion for management: Managed on telemetry Follow-up electrolytes and kidney function tests and correct abnormalities Cardiac-beasley is stable and can be followed as outpatient DVT prophylaxis is advised as per primary team Further evaluation and management depends on the above and clinical course A total of 55 minutes was spent reviewing the patient record, examining the patient, making a diagnostic and therapeutic plan, discussing this plan with medical personnel, following up on diagnostic studies and following the patient for clinical stability excluding any and all procedures. At least 50% of this time was spent in direct, [id number] contact. Thank you for allowing me to participate in this patient's care. Further recommendations will depend on patient's clinical course. Please do not hesitate to contact me if you have any questions or concerns. This medical document was created using electronic medical record system with [employer] computerized dictation system. Although this document has been carefully reviewed, there may still be some phonetic and typographical errors. These areas are purely typographical due to the imperfection of the software programs, and do not reflect any compromise in the patient's medical care. Plan discussed with: Patient, Other (nurse) BRANDY MILES MD Sep 24, 2025 06:32
[2025-09-24 07:30] VITALS: PULSE 65
[2025-09-24] MEDS: MORPHINE SULFATE 4 MG/ML SYR/VIAL IV PRN (08:46)
[2025-09-24 09:00] VITALS: BP 130/76; PULSE 65; RESP 18; TEMP 98.2; O2SAT 97
[2025-09-24 09:16] VITALS: RESP 18
--- NOTE | 2025-09-24 10:45 | DVHPN2 ---
Progress Note Date Seen: Sep 24, 2025 Medical Necessity Reason Pt with a Central, PICC or Fol: No Subjective Patient reports: No new complaints Review of Systems: HEENT:Normal, CVS:Normal, RESPIRATORY:Normal, GI:Normal, :Normal, MSK:Normal, NEURO:Normal Objective vital signs Vital Sign Date Time Temp Pulse Resp B/P (MAP) Pulse Ox O2 Delivery O2 Flow Rate FiO2 09/24/25 09:45 72 126/73 09/24/25 09:16 18 09/24/25 09:00 98.2 97 98.2 09/23/25 20:00 Room Air* 0 21 Total Intake and Output 09/23/25 09/23/25 09/24/25 15:00 23:00 07:00 Intake Total 900 ml 220 ml Output Total 850 ml 230 ml Balance 50 ml -10 ml medications Current Medications Medications Dose Ordered Sig/Asya Route Start Time Stop Time Status Last Admin Dose Admin Sodium Chloride 10 ml Q8HR IV 09/22/25 22:00 09/24/25 06:06 10 ML Acetaminophen/ Hydrocodone Bitart 1 tab Q4HP PRN PO 09/22/25 14:15 09/24/25 10:38 1 TAB Morphine Sulfate 2 mg Q4HP PRN IV 09/22/25 14:15 09/24/25 08:46 2 MG Enoxaparin Sodium 40 mg DAILY SC 09/23/25 10:00 09/24/25 08:45 40 MG Nitroglycerin 0.4 mg Q5MINP PRN SL 09/22/25 14:15 Morphine Sulfate 2 mg Q30M PRN IV 09/22/25 14:15 Carvedilol 3.125 mg Q12HR PO 09/22/25 22:00 09/24/25 08:45 3.125 MG Pantoprazole Sodium 40 mg DAILY@0600 PO 09/23/25 06:00 09/24/25 06:06 40 MG Examination: GENERAL:Normal, HEENT:Normal, NECK:Normal, LUNGS:Normal, CVS:Normal, ABDOMEN:Normal, MSK:Normal, MSK:Abnormal (left knee dressing), SKIN:Normal, NEURO:Normal, :Normal laboratory and microbiology Laboratory Tests 09/24/25 04:49 09/23/25 05:29 Test 09/23/25 05:29 Range/Units Serum Glucose 193 H 74-106 mg/dL Problem List/Assessment/Plan Problem List/Assessment/Plan * Atrial fibrillation, status post ablation, status post WATCHMAN procedure. * Hyperlipidemia. * Gastroesophageal reflux disease. * Status post left knee surgery for degenerative joint disease of the knee for which he will be placed on pain medication and receive physical therapy. * urinary retention: resolved, villasenor removed Plan discussed with: Patient My Orders My Orders Orders - PEPE CADET MD Procedure Category Date Status Time Kidney US 09/23/25 Resulted 11:24 Discharge DISCHARGE 09/24/25 Transmitted 10:42 Oxycodone Er Tablet PHA 09/24/25 Transmitted (Oxycontin Er Tablet 10:45 * Food Equipment Service Technician CONS 09/24/25 Transmitted Consult Date of Service: Sep 24, 2025 Billing Provider: PEPE CADET MD Common Visit Codes: [id number] INP/OBS CARE(HIGH) PEPE CADET MD Sep 24, 2025 10:45
[2025-09-24 11:47] VITALS: BP 126/73; PULSE 72; TEMP 36.8
== END 2025-09-24 13:15 | disposition home or self-care (01) | DRG 470 ==
LOC: SUR 07:28 → OVERFLOW 14:06 → TELE-WESTW 15:24
PROVIDERS: ADMIT Internal Medicine; ATTEND Internal Medicine
PROC: 8E0YXBZ Computer Assisted Procedure of Lower Extremity (ICD-10-PCS; 2025-09-22)
PROC: 0SRD0J9 Replacement of Left Knee Joint with Synthetic Substitute, Cemented, Open Approach (ICD-10-PCS; principal; 2025-09-22 11:50)
DX: M17.12 Unilateral primary osteoarthritis, left knee (principal); E78.5 Hyperlipidemia, unspecified; I10 Essential (primary) hypertension; I48.91 Unspecified atrial fibrillation; G43.909 Migraine, unspecified, not intractable, without status migrainosus; K21.9 Gastro-esophageal reflux disease without esophagitis; K57.30 Diverticulosis of large intestine without perforation or abscess without bleeding; Z79.84 Long term (current) use of oral hypoglycemic drugs; Z87.442 Personal history of urinary calculi; Z87.891 Personal history of nicotine dependence; Z95.0 Presence of cardiac pacemaker
CPT/HCPCS: 36415; 76775; 80053; 81001; 82565; 82962; 85014; 85018; 85025; 86850; 86900; 86901; 97110; 97116; 97163; C1713; G0378; J0131; J1100; J1885; J2250; J2405; J2704; J3490